=== PATIENT | female | born 1985 | race American Indian/Alaskan Native ===

== ENCOUNTER 2020-05-08 01:00 | Emergency (ER) | payer SELFPAY ==
[2020-05-08] MEDS ORDERED: ALBUTEROL 2.5 MG/3 ML NEBU IH ONE ×2 (01:08→01:11)
[2020-05-08] MEDS ORDERED: IPRATROPIUM 0.02% NEBU 2.5 ML IH ONE ×2 (01:08→01:11)
[2020-05-08] MEDS ORDERED: SODIUM CHLORIDE 0.9% 1000 ML 1,000 ML IV ONE (01:11)
[2020-05-08] MEDS ORDERED: methylPREDNISolone Sod Succinate 125 MG/2 ML INJ IV ONE (01:11)
--- NOTE | 2020-05-08 01:15 | Emergency Department Report ---
ED Shortness of Breath HPI - General Stated Complaint: DIFFICULTY BREATHING Time Seen by Provider: 05/08/20 01:10 Source: patient Limitations: Physical Limitation (respiratory distress) - History of Present Illness Initial Comments: CC: shortness of breath HPI: 35 yo female with hx of tobacco dependence presents with wheezing, cough, shortness of breath for one day. Cough is productive. No hx of asthma or heart disease. Has wheezed before with upper respiratory infection. MD Complaint: shortness of breath, cough -: Gradual, days(s) (1) Severity: severe Consistency: constant Improves With: nothing Worsens With: exertion Known History Of: other (tobacco use, wheezing) Associated Symptoms: denies other symptoms - Related Data Previous Rx's Medication Instructions Recorded Last Taken Type Albuterol Mdi (or & Nicu Only) 2 puff IH QID PRN #8.5 gram 05/08/20 Unknown Rx [ProAir HFA Inhaler] Doxycycline Hyclate [Doxycycline 100 mg PO Q12HR 7 Days #14 tab 05/08/20 Unknown Rx Hyclate TAB] Prednisone [predniSONE 10 mg 10 mg PO .TAPER #1 tab.ds.pk 05/08/20 Unknown Rx (6-Day Pack, 21 Tabs)] Allergies Allergy/AdvReac Type Severity Reaction Status Date / Time No Known Allergies Allergy Unverified 05/08/20 01:29 ED Review of Systems ROS: Stated complaint: DIFFICULTY BREATHING Other details as noted in HPI Comment: Unobtainable due to pts medical conditions (limited due to respiratory distress) ED Past Medical Hx - Social History Smoking Status: Current Every Day Smoker - Medications Home Medications: Home Medications Medication Instructions Recorded Confirmed Last Taken Type Albuterol Mdi (or & Nicu Only) 2 puff IH QID PRN #8.5 gram 05/08/20 Unknown Rx [ProAir HFA Inhaler] Doxycycline Hyclate [Doxycycline 100 mg PO Q12HR 7 Days #14 tab 05/08/20 Unknown Rx Hyclate TAB] Prednisone [predniSONE 10 mg 10 mg PO .TAPER #1 tab.ds.pk 05/08/20 Unknown Rx (6-Day Pack, 21 Tabs)] ED Physical Exam - General General appearance: alert, anxious, in distress, other (severe work of breathing unable to speak full sentences) - Head Head exam: Present: atraumatic, normocephalic - Eye Eye exam: Present: normal appearance - ENT ENT exam: Present: mucous membranes moist - Neck Neck exam: Present: normal inspection, full ROM - Respiratory Respiratory exam: Present: respiratory distress, wheezes, rales, rhonchi, prolonged expiratory - Cardiovascular Cardiovascular Exam: Present: regular rate, normal rhythm, normal heart sounds. Absent: systolic murmur, diastolic murmur, rubs, gallop - GI/Abdominal GI/Abdominal exam: Present: soft, normal bowel sounds. Absent: distended, tenderness, guarding, rebound - Extremities Exam Extremities exam: Present: normal inspection - Back Exam Back exam: Present: normal inspection - Neurological Exam Neurological exam: Present: alert, oriented X3 - Psychiatric Psychiatric exam: Present: normal affect, anxious - Skin Skin exam: Present: warm, dry, intact, normal color. Absent: rash ED Course Vital Signs 05/08/20 05/08/20 05/08/20 01:00 01:15 01:40 Temperature 98 F Pulse Rate 80 71 Pulse Rate [ 88 Bilateral] Respiratory 36 H 18 Rate Respiratory 24 Rate [Bilateral ] Blood Pressure 131/87 Blood Pressure 131/87 [Left] O2 Sat by Pulse 95 100 Oximetry 05/08/20 05/08/20 02:34 04:04 Temperature Pulse Rate 92 H 76 Pulse Rate [ Bilateral] Respiratory 19 17 Rate Respiratory Rate [Bilateral ] Blood Pressure Blood Pressure 133/81 124/83 [Left] O2 Sat by Pulse 100 96 Oximetry - Reevaluation(s) Reevaluation #1: 05/08/20 02:08 I reevaluated patient. Patient still has persistent expiratory wheezing. However she feels much better. She is breathing 18 breaths/min. Oxygen saturation 100% while receiving nebulizer therapy. Less anxious. She is now calm. Reevaluation #2: 05/08/20 04:55 Patient is comfortable. She is ambulatory no difficulty. She is speaking full word sentences with ease. She feels much better. ED Medical Decision Making - Lab Data Result diagrams: 05/08/20 01:29 05/08/20 01:29 - Radiology Data Radiology results: report reviewed Chest radiograph 1 view: Mild central peribronchial thickening no consolidation or effusion - Medical Decision Making Mrs. Washington 35-year-old female with history of tobacco dependence who presents with shortness of breath cough wheezing. Chest radiograph suggests acute bronchitis. I suspect patient has acute bronchitis exacerbated by viral syndrome as well as tobacco use. Antibiotics are indicated due to tobacco use. Patient prescribed doxycycline albuterol MDI and prednisone taper. Strongly suggested smoking cessation. Vital Signs - 24 hr 05/08/20 05/08/20 05/08/20 01:00 01:15 01:40 Temperature 98 F Pulse Rate 80 71 Pulse Rate [ 88 Bilateral] Respiratory 36 H 18 Rate Respiratory 24 Rate [Bilateral ] Blood Pressure 131/87 Blood Pressure 131/87 [Left] O2 Sat by Pulse 95 100 Oximetry 05/08/20 05/08/20 02:34 04:04 Temperature Pulse Rate 92 H 76 Pulse Rate [ Bilateral] Respiratory 19 17 Rate Respiratory Rate [Bilateral ] Blood Pressure Blood Pressure 133/81 124/83 [Left] O2 Sat by Pulse 100 96 Oximetry Critical Care Time: Yes Critical care time in (mins) excluding proc time.: 40 Critical care attestation.: If time is entered above; I have spent that time in minutes in the direct care of this critically ill patient, excluding procedure time. 40 minutes of critical care time excluding procedures were used in the care of the patient. I came immediately to the bedside upon patient's arrival to treatment room.I discussed treatment plan with the nursing team members and respiratory therapist. I reviewed electronic record. Patient required multiple interventions and reassessments. ED Disposition Clinical Impression: Acute bronchitis Disposition: -01 TO HOME OR SELFCARE Is pt being admited?: No Does the pt Need Aspirin: No Condition: Stable Instructions: Acute Bronchitis (ED), Acute Bronchitis, Adult, [id number], Steps to Quit Smoking, [id number] Prescriptions: Doxycycline Hyclate [Doxycycline Hyclate TAB] 100 mg PO Q12HR 7 Days #14 tab Prednisone [predniSONE 10 mg (6-Day Pack, 21 Tabs)] 10 mg PO .TAPER #1 tab.ds.pk Albuterol Mdi (or & Nicu Only) [ProAir HFA Inhaler] 2 puff IH QID PRN #8.5 gram PRN Reason: Shortness Of Breath Referrals: TARAN NUNN MD [Staff Physician] - 3-5 Days
[2020-05-08 02:11] LABS: Basophils % (Auto) 0.5 % (0.0-1.8); Eosinophils # (Auto) 0.6 K/mm3 (0.0-0.4); Eosinophils % (Auto) 8.3 % (0.0-4.3); Hematocrit 39.8 % (30.3-42.9); Hemoglobin 12.7 gm/dl (10.1-14.3); Lymphocytes % (Auto) 39.6 % (13.4-35.0); Mean Corpuscular HGB Conc 32 % (30-34); Mean Corpuscular Volume 76 fl (79-97); Monocytes # (Auto) 0.4 K/mm3 (0.0-0.8); Monocytes % (Auto) 5.1 % (0.0-7.3); Platelet Count 185 K/mm3 (140-440); Red Blood Count 5.21 M/mm3 (3.65-5.03); Red Cell Distribution Width 14.1 % (13.2-15.2)
[2020-05-08 02:26] LABS: BUN/Creatinine Ratio 9; Blood Urea Nitrogen 7 mg/dL (7-17); Calcium 8.8 mg/dL (8.4-10.2); Hemolysis Index 13
[2020-05-08 04:05] VITALS: BP 124/83
--- NOTE | 2020-05-08 04:18 | XRay Report ---
CHEST 1 VIEW INDICATION: dyspnea wheezing. COMPARISON: None FINDINGS: SUPPORT DEVICES: None. HEART: Within normal limits. LUNGS/PLEURA: Mild central peribronchial thickening, especially the right with no consolidation or ef fusion. ADDITIONAL FINDINGS: None. IMPRESSION: 1. Pulmonary findings as above. Signer Name: Romain Posadas MD Signed: 05/08/2020 4:14 AM Workstation Name: [id number]
== END 2020-05-08 05:11 | disposition home or self-care (01) ==
LOC: ED 01:00
DX: J20.9 Acute bronchitis, unspecified (principal); F17.200 Nicotine dependence, unspecified, uncomplicated; Z79.899 Other long term (current) drug therapy
CPT/HCPCS: 36415; 71045; 80048; 85025; 94640; 96361; 96374; 99284; J2930; J7030; 94644

== ENCOUNTER 2022-02-20 05:12 | Emergency (ER) | payer SELFPAY ==
[2022-02-20 09:26] LABS: Color,Urine Yellow (Yellow)
[2022-02-20 09:31] LABS: Mucus,Urine 3+ /HPF
--- NOTE | 2022-02-20 10:01 | Emergency Department Report ---
ED Female HPI - General Chief complaint: Urogenital-Female Stated complaint: POSS UTI Time Seen by Provider: 02/20/22 09:47 Source: patient Mode of arrival: Ambulatory Limitations: No Limitations - History of Present Illness MD Complaint: dysuria -: Gradual Location: suprapubic Severity: mild Quality: burning Consistency: constant Improves with: urination Worsens with: urination Are you Now?: Yes Associated Symptoms: dysuria, hematuria - Related Data Previous Rx's Medication Instructions Recorded Last Taken Type Albuterol Mdi (or & Nicu Only) 2 puff IH QID PRN #8.5 gram 05/08/20 Unknown Rx [ProAir HFA Inhaler] Doxycycline Hyclate [Doxycycline 100 mg PO Q12HR 7 Days #14 tab 05/08/20 Unknown Rx Hyclate TAB] Prednisone [predniSONE 10 mg 10 mg PO .TAPER #1 tab.ds.pk 05/08/20 Unknown Rx (6-Day Pack, 21 Tabs)] Nitrofurantoin Wilcox/M-Cryst 100 mg PO Q12HR #20 capsule 02/20/22 Unknown Rx [Macrobid CAP] Phenazopyridine [Pyridium] 200 mg PO TID #9 tab 02/20/22 Unknown Rx Allergies Allergy/AdvReac Type Severity Reaction Status Date / Time No Known Allergies Allergy Unverified 05/08/20 01:29 ED Review of Systems ROS: Stated complaint: POSS UTI Other details as noted in HPI Comment: All other systems reviewed and negative ED Past Medical Hx - Past Medical History Previous Medical History?: Yes - Surgical History Past Surgical History?: Yes Hx Cholecystectomy: Yes - Social History Smoking Status: Unknown if ever smoked - Medications Home Medications: Home Medications Medication Instructions Recorded Confirmed Last Taken Type Albuterol Mdi (or & Nicu Only) 2 puff IH QID PRN #8.5 gram 05/08/20 Unknown Rx [ProAir HFA Inhaler] Doxycycline Hyclate [Doxycycline 100 mg PO Q12HR 7 Days #14 tab 05/08/20 Unknown Rx Hyclate TAB] Prednisone [predniSONE 10 mg 10 mg PO .TAPER #1 tab.ds.pk 05/08/20 Unknown Rx (6-Day Pack, 21 Tabs)] Nitrofurantoin Wilcox/M-Cryst 100 mg PO Q12HR #20 capsule 02/20/22 Unknown Rx [Macrobid CAP] Phenazopyridine [Pyridium] 200 mg PO TID #9 tab 02/20/22 Unknown Rx ED Physical Exam - General Limitations: No Limitations General appearance: alert, in no apparent distress - Head Head exam: Present: atraumatic, normocephalic - Eye Eye exam: Present: normal appearance, PERRL, EOMI - ENT ENT exam: Present: mucous membranes moist - Neck Neck exam: Present: normal inspection - Respiratory Respiratory exam: Present: normal lung sounds bilaterally. Absent: respiratory distress - Cardiovascular Cardiovascular Exam: Present: regular rate, normal rhythm. Absent: systolic murmur, diastolic murmur, rubs, gallop - GI/Abdominal GI/Abdominal exam: Present: soft, normal bowel sounds - Extremities Exam Extremities exam: Present: normal inspection, normal capillary refill - Back Exam Back exam: Present: normal inspection. Absent: CVA tenderness (R), CVA tenderness (L) - Neurological Exam Neurological exam: Present: alert, oriented X3, CN II-XII intact - Psychiatric Psychiatric exam: Present: normal affect, normal mood - Skin Skin exam: Present: warm, dry, intact, normal color. Absent: rash, diaphoretic, erythema, urticaria, pallor, abrasion ED Course Vital Signs 02/20/22 05:14 Temperature 99.2 F Pulse Rate 85 Respiratory 18 Rate Blood Pressure 148/93 O2 Sat by Pulse 99 Oximetry Critical care attestation.: If time is entered above; I have spent that time in minutes in the direct care of this critically ill patient, excluding procedure time. ED Disposition Clinical Impression: UTI (urinary tract infection) Disposition: 01 HOME / SELF CARE / HOMELESS Is pt being admited?: No Does the pt Need Aspirin: No Condition: Stable Instructions: Urinary Tract Infection, Adult, [id number], Urinary Tract Infection, Adult, Urodynamic Testing, [id number] Prescriptions: Nitrofurantoin Wilcox/M-Cryst [Macrobid CAP] 100 mg PO Q12HR #20 capsule Phenazopyridine [Pyridium] 200 mg PO TID #9 tab Referrals: PRIMARY CARE, [Primary Care Provider] - 3-5 Days
[2022-02-20 10:21] VITALS: BP 127/87
== END 2022-02-20 10:21 | disposition home or self-care (01) ==
LOC: ED 05:12
DX: N39.0 Urinary tract infection, site not specified (principal); Z90.49 Acquired absence of other specified parts of digestive tract
CPT/HCPCS: 81001; 99283